=== PATIENT | male | born 1985 | race Caucasian/White ===

== ENCOUNTER 2016-12-20 06:13 | Emergency (ER) | payer OTHER ==
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
[2016-12-20] MEDS ORDERED: OXYCODONE/APAP 5/325 TAB PO ONE (07:22)
[2016-12-20] MEDS ORDERED: OXYCODONE/APAP 5/325 TAB ONE (07:22)
[2016-12-20 10:55] VITALS: BP 132/82; PULSE 83; RESP 14; TEMP 98.2; O2SAT 98
== END 2016-12-20 10:55 | disposition home or self-care (01) ==
DX: S16.1XXA Strain of muscle, fascia and tendon at neck level, initial encounter (principal); W22.8XXA Striking against or struck by other objects, initial encounter; Y99.8 Other external cause status; Y93.75 Activity, martial arts